=== PATIENT | male | born 1965 | race Native Hawaiian/Other Pacific Islander ===

== ENCOUNTER 2019-07-28 09:00 | Outpatient (CLI) | payer BC ==
[~2019-07-28 09:00] MED LIST: DEXL60CA4 PO; MOBIC7.5 M1 PO
== END 2019-07-28 19:49 | disposition home or self-care (01) ==
LOC: CT 09:00
DX: R10.84 Generalized abdominal pain (principal)
CPT/HCPCS: 36415; 82565; 84520; Q9963